=== PATIENT | male | born 1985 | race Two or more races ===

== ENCOUNTER 2022-11-27 16:25 | Emergency (ER) | payer OTHER ==
[~2022-11-27] VITALS: Ht 177.8 cm; Wt 81.6 kg
[2022-11-27 16:25] VITALS: BP 138/91
--- NOTE | 2022-11-27 17:26 | NUR ---
TO ER CHAIR 2, NO CHANGE IN CONDITION
[2022-11-27] MEDS ORDERED: TRAM50TA2 PO (18:19)
[2022-11-27] MEDS ORDERED: KETO10TA2 PO (18:19)
== END 2022-11-27 18:26 | disposition home or self-care (01) ==
LOC: ER 16:28
DX: S63.501A Unspecified sprain of right wrist, initial encounter (principal); Z79.899 Other long term (current) drug therapy; W22.8XXA Striking against or struck by other objects, initial encounter; Y93.89 Activity, other specified; Y92.89 Other specified places as the place of occurrence of the external cause; Y99.8 Other external cause status
CPT/HCPCS: 73130-TC